=== PATIENT | male | born 1970 | race Native Hawaiian/Other Pacific Islander ===

== ENCOUNTER 2018-11-29 15:53 | Inpatient (IN) | payer MEDICAID, OTHER | END 2018-12-02 14:15 | disposition home or self-care (01) | LOC: ER 15:53 → TELE 15:54 → TELE-CENTR 21:04 | DX: L03.115 Cellulitis of right lower limb (principal); I50.33 Acute on chronic diastolic (congestive) heart failure; I42.0 Dilated cardiomyopathy; E44.1 Mild protein-calorie malnutrition; I48.0 Paroxysmal atrial fibrillation; K74.60 Unspecified cirrhosis of liver; I87.2 Venous insufficiency (chronic) (peripheral); I48.91 Unspecified atrial fibrillation ==

== ENCOUNTER 2022-04-29 19:53 | Emergency (ER) | payer MEDICARE, MEDICAID ==
[~2022-04-29] VITALS: Ht 185.4 cm; Wt 158.8 kg
[~2022-04-29 19:53] MED LIST: BISO5TAB44 PO; CARV3.1240 PO; CLIN300C8 PO; FURO1TAB33 PO; RIVA10TA PO; SACC250C PO
[2022-04-29 20:41] VITALS: BP 116/80
[2022-04-29 21:37] LABS: Basophils # (auto) 0 10 ^3/uL (0-0.2); Basophils % (auto) 0.5 % (0.0-2.0); Eosinophils # (auto) 0.1 10 ^3/uL (0-0.8); Eosinophils % (auto) 1.3 % (0.0-7.0); Hematocrit 37.7 % (41.0-53.0); Hemoglobin 12.2 g/dL (13.5-17.5); Lymphocytes # (auto) 0.6 10 ^3/uL (0.4-5.4); Lymphocytes % (auto) 13.4 % (10.0-50.0); Mean Corpuscular Hemoglobin 29.6 pg (28.0-32.0); Mean Corpuscular Hgb Conc. 32.4 g/dL (32.0-36.0); Mean Corpuscular Volume 91.6 fL (80.0-100.0); Monocytes # (auto) 0.7 10 ^3/uL (0-1.3); Monocytes % (auto) 13.6 % (0.0-12.0); Neutrophils # (auto) 3.5 10 ^3/uL (1.6-8.6); Neutrophils % (auto) 71.2 % (37.0-80.0); Red Blood Cells 4.11 10^6/uL (4.5-5.90); Red Cell Distribution Width 16.9 % (11.8-14.3); White Blood Cell 4.8 10^3/uL (4.4-10.8)
[2022-04-29 21:56] LABS: Potassium 4.3 mmol/L (3.5-5.1)
[2022-04-29 22:02] LABS: Albumin 3.2 g/dL (3.4-5.0); BUN/Creatinine Ratio 16.8; Calcium 9.4 mg/dL (8.5-10.1)
[2022-04-29 22:04] LABS: Bilirubin, Total 5.4 mg/dL (0.2-1.0); Total Protein 8.1 g/dL (6.4-8.2)
[2022-04-29 22:14] LABS: Urine Bacteria NONE SEEN /hpf (None Seen); Urine Blood TRACE /uL (Negative); Urine Hyaline Cast FEW /lpf (0 - 2); Urine Mucus FEW (None Seen); Urine Specific Gravity 1.026 (1.001-1.035); Urine WBC 177 /hpf (0 - 3)
== END 2022-04-30 08:42 | disposition home or self-care (01) ==
LOC: ER 19:53
DX: E80.6 Other disorders of bilirubin metabolism (principal); K74.60 Unspecified cirrhosis of liver; I50.9 Heart failure, unspecified; I48.91 Unspecified atrial fibrillation; F17.210 Nicotine dependence, cigarettes, uncomplicated; Z79.2 Long term (current) use of antibiotics; Z79.899 Other long term (current) drug therapy
CPT/HCPCS: 36415; 71045; 80053; 81001; 83880; 84484; 85025; 93005